=== PATIENT | female | born 1990 | race African-American/Black ===

== ENCOUNTER 2017-02-17 12:07 | Emergency (ER) | payer SELFPAY ==
[~2017-02-17] VITALS: Ht 157.5 cm; Wt 80.0 kg
[~2017-02-17 12:07] MED LIST: AMOXICILLIN500 MG PO; CEPHALEXIN500 MG PO; CIPROFLOXACN500 MG PO; DARVOCET-N 100100 MG OR; LOMOTIL2.5 MG PO; LORTAB5 PO; NO HOME MEDS; ONDANSETRON4 MG PO; PHENERGAN25 MG/TAB PO; PREVACID30 M2 PO; PROMETHAZINE25 M1 RE; ULTRAM50 M1 PO; ZOFRAN ODT4 MG OR; ZOFRAN ODT4 MG PO; ZOFRAN ODT8 MG PO
[2017-02-17 13:01] LABS: HEMATOCRIT 37.9 % (37.0-47.0); HEMOGLOBIN 12.8 g/dl (12.0-16.0); IMMATURE GRANULOCYTES 0.3 % (0.0-1.0); MEAN CELL VOLUME 98.7 fL CALC (80.0-100.0); MEAN CORPUSCULAR HGB 33.3 pG CALC (26.0-32.0); MEAN CORPUSCULAR HGB CONC 33.8 g/L CALC (32.0-36.0); NEUT# 5.55 thou/uL (2.00-7.15); RED BLOOD COUNT 3.84 mill/uL (4.20-5.60); RED CELL DISTRI WIDTH 12.5 % (11.5-15.5)
[2017-02-17 13:04] LABS: ALBUMIN 4.8 g/dL (3.2-5.0); ALKALINE PHOSPHATASE 51 u/l (38-126); ANION GAP 16 (6-22 (CALC)); BILIRUBIN, TOTAL 0.9 mg/dL (0.0-1.4); BUN 13 mg/dL (7-17); BUN/CREATININE RATIO 16 (12-20 (CALC)); CALCIUM 9.7 mg/dL (8.4-10.2); CARBON DIOXIDE 23 mmol/l (22-30); CHLORIDE 108 mmol/l (95-108); CREATININE 0.8 mg/dL (0.5-1.0); GFR > 60 ML/MIN (>=60 (CALC)); GFR FOR AFR.AMER. > 60 ML/MIN (>=60 (CALC)); GLUCOSE 110 mg/dL (65-105); POTASSIUM 4.2 mmol/l (3.5-5.1); SGOT/AST 19 u/l (14-36); SGPT/ALT 33 u/l (9-52); SODIUM 143 mmol/l (137-146); TOTAL PROTEIN 8.1 g/dL (6.3-8.2)
[2017-02-17] MEDS ORDERED: IMODIUM2 MG PO (13:09)
[2017-02-17] MEDS ORDERED: ZOFRAN ODT4 MG PO (13:09)
[2017-02-17 14:11] VITALS: BP 146/97
== END 2017-02-17 14:14 | disposition home or self-care (01) | DRG 392 ==
LOC: ED 12:07
PROVIDERS: Emergency Medicine
DX: R11.10 Vomiting, unspecified (principal); F17.210 Nicotine dependence, cigarettes, uncomplicated; R19.7 Diarrhea, unspecified

== ENCOUNTER 2017-08-23 08:48 | Emergency (ER) | payer SELFPAY ==
[~2017-08-23] VITALS: Ht 157.5 cm; Wt 80.0 kg
[~2017-08-23 08:48] MED LIST changes: +IMODIUM2 MG PO
[2017-08-23 09:37] LABS: HEMATOCRIT 38.5 % (37.0-47.0); IMMATURE GRANULOCYTES 0.3 % (0.0-1.0); MEAN CELL VOLUME 98.5 fL CALC (80.0-100.0); MEAN CORPUSCULAR HGB 33.2 pG CALC (26.0-32.0); MEAN CORPUSCULAR HGB CONC 33.8 g/L CALC (32.0-36.0); NEUT# 6.31 thou/uL (2.00-7.15); RED BLOOD COUNT 3.91 mill/uL (4.20-5.60); RED CELL DISTRI WIDTH 12.2 % (11.5-15.5)
[2017-08-23 09:54] LABS: ALBUMIN 4.8 g/dL (3.2-5.0); ALKALINE PHOSPHATASE 65 u/l (38-126); ANION GAP 19 (6-22 (CALC)); BILIRUBIN, TOTAL 0.9 mg/dL (0.0-1.4); BUN 12 mg/dL (7-17); BUN/CREATININE RATIO 13 (12-20 (CALC)); CARBON DIOXIDE 23 mmol/l (22-30); CHLORIDE 107 mmol/l (95-108); CREATININE 0.9 mg/dL (0.5-1.0); GFR > 60 ML/MIN (>=60 (CALC)); GFR FOR AFR.AMER. > 60 ML/MIN (>=60 (CALC)); LIPASE 69 u/l (23-300); SGOT/AST 22 u/l (14-36); SGPT/ALT 27 u/l (9-52); SODIUM 145 mmol/l (137-146); TOTAL PROTEIN 8.2 g/dL (6.3-8.2)
[2017-08-23] MEDS ORDERED: BENTYL10 MG PO (10:29)
[2017-08-23] MEDS ORDERED: PHENERGAN25 MG RE (10:29)
[2017-08-23] MEDS ORDERED: ZOFRAN4 MG/TAB PO (10:29)
[2017-08-23 10:55] VITALS: BP 164/68
== END 2017-08-23 10:55 | disposition home or self-care (01) | DRG 918 ==
LOC: ED 08:48
PROVIDERS: Emergency Medicine
DX: T62.8X1A Toxic effect of other specified noxious substances eaten as food, accidental (unintentional), initial encounter (principal); R10.11 Right upper quadrant pain; R10.12 Left upper quadrant pain; R11.2 Nausea with vomiting, unspecified; R19.7 Diarrhea, unspecified

== ENCOUNTER 2018-07-12 16:40 | Emergency (ER) | payer OTHER ==
[~2018-07-12] VITALS: Ht 157.5 cm; Wt 81.0 kg
[~2018-07-12 16:40] MED LIST changes: +BENTYL10 MG PO; +PHENERGAN25 MG RE; +ZOFRAN4 MG/TAB PO
[2018-07-12 17:11] LABS: HEMOGLOBIN 11.8 g/dl (12.0-16.0); IMMATURE GRANULOCYTES 0.5 % (0.0-5.0); MEAN CELL VOLUME 98.9 fL CALC (80.0-100.0); MEAN CORPUSCULAR HGB 33.3 pG CALC (26.0-32.0); MEAN CORPUSCULAR HGB CONC 33.7 g/L CALC (32.0-36.0); NEUT# 5.84 thou/uL (2.00-7.15); RED BLOOD COUNT 3.54 mill/uL (4.20-5.60); RED CELL DISTRI WIDTH 12.3 % (11.5-15.5)
[2018-07-12 17:30] LABS: ALBUMIN 5.1 g/dL (3.2-5.0); ALKALINE PHOSPHATASE 51 u/l (38-126); ANION GAP 17 (6-22 (CALC)); BILIRUBIN, TOTAL 0.8 mg/dL (0.0-1.4); BUN 11 mg/dL (7-17); BUN/CREATININE RATIO 13 (12-20 (CALC)); CARBON DIOXIDE 21 mmol/l (22-30); CHLORIDE 106 mmol/l (95-108); CREATININE 0.8 mg/dL (0.5-1.0); GFR > 60 ML/MIN (>=60 (CALC)); GFR FOR AFR.AMER. > 60 ML/MIN (>=60 (CALC)); LIPASE 65 u/l (23-300); SGOT/AST 21 u/l (14-36); SODIUM 140 mmol/l (137-146); TOTAL PROTEIN 8.3 g/dL (6.3-8.2)
[2018-07-12 18:00] LABS: BARBITURATES NEGATIVE (NEGATIVE); COCAINE NEGATIVE (NEGATIVE); METHADONE NEGATIVE (NEGATIVE); OXCYCODONE NEGATIVE (NEGATIVE); TETRAHYDROCANNABIONOL POSITIVE (NEGATIVE); TRICYLIC ANTIDEPRESSANTS NEGATIVE (NEGATIVE)
[2018-07-12] MEDS ORDERED: BENTYL10 MG PO (18:18)
[2018-07-12] MEDS ORDERED: ZOFRAN8 MG PO (18:18)
[2018-07-12 18:25] VITALS: BP 171/86
== END 2018-07-12 18:37 | disposition home or self-care (01) | DRG 392 ==
LOC: ED 16:40
PROVIDERS: Emergency Medicine
DX: K52.9 Noninfective gastroenteritis and colitis, unspecified (principal); F17.200 Nicotine dependence, unspecified, uncomplicated

== ENCOUNTER 2020-02-26 22:56 | Emergency (ER) | payer OTHER ==
[~2020-02-26] VITALS: Ht 157.5 cm; Wt 90.0 kg
[~2020-02-26 22:56] MED LIST changes: +ZOFRAN8 MG PO
[2020-02-26 23:45] LABS: HEMATOCRIT 35.3 % (37.0-47.0); HEMOGLOBIN 11.6 g/dl (12.0-16.0); IMMATURE GRANULOCYTES 0.3 % (0.0-5.0); MEAN CELL VOLUME 94.4 fL CALC (80.0-100.0); MEAN CORPUSCULAR HGB CONC 32.9 g/dL CAL (32.0-36.0); NEUT# 6.34 thou/uL (2.00-7.15); RED BLOOD COUNT 3.74 mill/uL (4.20-5.60); RED CELL DISTRI WIDTH 14.4 % (11.5-15.5)
[2020-02-27 00:07] LABS: ALKALINE PHOSPHATASE 66 u/l (38-126); AMYLASE 95 u/l (30-110); ANION GAP 16 (6-22 (CALC)); BILIRUBIN, TOTAL 0.6 mg/dL (0.0-1.4); BUN 8 mg/dL (7-17); BUN/CREATININE RATIO 9 (12-20 (CALC)); CARBON DIOXIDE 22 mmol/l (22-30); CHLORIDE 106 mmol/l (95-108); CREATININE 0.9 mg/dL (0.5-1.0); GFR > 60 ML/MIN (>=60 (CALC)); GFR FOR AFR.AMER. > 60 ML/MIN (>=60 (CALC)); LIPASE 112 u/l (23-300); POTASSIUM 4.1 mmol/l (3.5-5.1); SGOT/AST 20 u/l (14-36); SODIUM 140 mmol/l (137-146); TOTAL PROTEIN 8.4 g/dL (6.3-8.2)
[2020-02-27] MEDS ORDERED: LOMOTIL2.5 MG PO (00:29)
[2020-02-27] MEDS ORDERED: PHENERGAN25 MG/TAB PO (00:29)
[2020-02-27 00:45] VITALS: BP 168/99
== END 2020-02-27 00:55 | disposition home or self-care (01) | DRG 392 ==
LOC: ED 22:56
PROVIDERS: Family Medicine
DX: K52.9 Noninfective gastroenteritis and colitis, unspecified (principal); F17.200 Nicotine dependence, unspecified, uncomplicated

== ENCOUNTER 2021-03-12 15:57 | Emergency (ER) | payer SELFPAY ==
[~2021-03-12] VITALS: Ht 157.5 cm; Wt 73.0 kg
[2021-03-12 17:02] LABS: HEMATOCRIT 38.9 % (37.0-47.0); HEMOGLOBIN 12.5 g/dl (12.0-16.0); MEAN CORPUSCULAR HGB 32.9 pG CALC (26.0-32.0); MEAN CORPUSCULAR HGB CONC 32.1 g/dL CAL (32.0-36.0); NEUT# 8.19 thou/uL (2.00-7.15); RED BLOOD COUNT 3.8 mill/uL (4.20-5.60); RED CELL DISTRI WIDTH 13.1 % (11.5-15.5)
[2021-03-12 17:07] LABS: MEAN CELL VOLUME 102.4 fL CALC (80.0-100.0)
[2021-03-12 17:28] LABS: ALBUMIN 4.8 g/dL (3.2-5.0); ALKALINE PHOSPHATASE 68 u/l (38-126); ANION GAP 15 (6-22 (CALC)); BUN 12 mg/dL (7-17); BUN/CREATININE RATIO 17 (12-20 (CALC)); CARBON DIOXIDE 22 mmol/l (22-30); CHLORIDE 105 mmol/l (95-108); CREATININE 0.7 mg/dL (0.5-1.0); GFR > 60 ML/MIN (>=60 (CALC)); GFR FOR AFR.AMER. > 60 ML/MIN (>=60 (CALC)); LIPASE 79 u/l (23-300); POTASSIUM 4.1 mmol/l (3.5-5.1); SGOT/AST 21 u/l (14-36); SODIUM 137 mmol/l (137-146); TOTAL PROTEIN 8.5 g/dL (6.3-8.2)
[2021-03-12 17:28] LABS: URINE BILIRUBIN - DIPSTICK NEGATIVE (NEGATIVE); URINE BLOOD DIPSTICK NEGATIVE (NEGATIVE); URINE GLUCOSE - DIPSTICK 100 mg/dL (NEGATIVE); URINE KETONE 15 mg/dL (NEGATIVE); URINE LEUK ESTERASE NEGATIVE (NEGATIVE); URINE PH 7.5 (4.5-8.0); URINE PROTEIN - DIPSTICK 30 mg/dL (NEG-TRACE)
[2021-03-12 17:29] LABS: BILIRUBIN, TOTAL 0.9 mg/dL (0.0-1.4)
[2021-03-12 17:29] LABS: URINE NITRITE - DIPSTICK POSITIVE (Negative)
[2021-03-12 17:30] LABS: URINE COLOR DK. YELLOW
[2021-03-12 17:35] LABS: URINE BACTERIA RARE hpf; URINE SQUAMOUS EPITHELIAL CELL FEW EPI/hpf (0-FEW); URINE WBC 0-2 WBC/hpf (0-5)
[2021-03-12] MEDS ORDERED: PHENERGAN25 MG RE (18:16)
[2021-03-12] MEDS ORDERED: BACTRIM DS1 TAB PO (18:16)
[2021-03-12] MEDS ORDERED: ULTRAM50 MG PO ×2 (18:17→18:19)
[2021-03-12 19:52] VITALS: BP 186/104
== END 2021-03-12 19:45 | disposition home or self-care (01) | DRG 690 ==
LOC: ED 15:57
DX: N39.0 Urinary tract infection, site not specified (principal); R11.10 Vomiting, unspecified; F17.200 Nicotine dependence, unspecified, uncomplicated

== ENCOUNTER 2021-03-14 10:35 | Emergency (ER) | payer OTHER ==
[~2021-03-14] VITALS: Ht 157.5 cm; Wt 75.0 kg
[~2021-03-14 10:35] MED LIST changes: +BACTRIM DS1 TAB PO; +ULTRAM50 MG PO
[2021-03-14 11:09] LABS: URINE BILIRUBIN - DIPSTICK NEGATIVE (NEGATIVE); URINE BLOOD DIPSTICK TRACE-INTACT (NEGATIVE); URINE COLOR YELLOW; URINE GLUCOSE - DIPSTICK NEGATIVE (NEGATIVE); URINE KETONE NEGATIVE (NEGATIVE); URINE LEUK ESTERASE NEGATIVE (NEGATIVE); URINE PROTEIN - DIPSTICK NEGATIVE (NEG-TRACE); URINE SPECIFIC GRAVITY 1.025; URINE UROBILINOGEN - DIPSTICK 0.2 E.U./dL (0.2)
[2021-03-14 11:15] LABS: URINE NITRITE - DIPSTICK NEGATIVE (Negative)
[2021-03-14 12:55] VITALS: BP 156/83
== END 2021-03-14 12:55 | disposition left against medical advice (07) | DRG 552 ==
LOC: ED 10:35
PROVIDERS: Emergency Medicine
DX: M54.9 Dorsalgia, unspecified (principal); M54.2 Cervicalgia; V43.52XA Car driver injured in collision with other type car in traffic accident, initial encounter; Z91.19 Patient's noncompliance with other medical treatment and regimen